=== PATIENT | female | born 1990 | race African-American/Black ===

== ENCOUNTER 2021-08-03 08:04 | Inpatient (IN) | payer BC ==
[2021-08-03] MEDS ORDERED: Sodium Chloride 0.9% 10 ML Syringe FLUSH PRN (08:23)
[2021-08-03] MEDS ORDERED: Nalbuphine 10 MG/1 ML Vial IVPUSH PRN (08:23)
[2021-08-03] MEDS ORDERED: Oxytocin/Lactated Ringers 10 UNIT/1,000 ML BAG IV SCH ×2 (08:30)
[2021-08-03] MEDS: Lactated Ringers 1,000 ML IV SCH ×4 (09:30→19:30)
[2021-08-03] MEDS ORDERED: ePHEDrine 50 MG/ML SDV IVPUSH PRN (09:56)
[2021-08-03] MEDS ORDERED: fentaNYL 100 MCG/2 ML SDV EPIDUR PRN (09:56)
[2021-08-03] MEDS ORDERED: Ondansetron 4 MG/2 ML SDV IVPUSH PRN (09:56)
--- NOTE | 2021-08-03 10:05 | PCM.PREANE ---
Preanesthetic Assessment - Procedure Proposed Procedure: Epidural - Anesthesia/Transfusion/Family Hx Anesthesia History: Prior Anesthesia Without Reaction Family History of Anesthesia Reaction: No Transfusion History: No Prior Transfusion(s) Intubation History: Unknown - Review of Systems General: No Symptoms Pulmonary: No Symptoms (Smoker: 1-2 cigarettes/ 7 years. ETOH: socially but not with ) Cardiovascular: No Symptoms, Palpitations (with anxiety) Gastrointestinal: No Symptoms (GERD-pepcid at night/controlled.), Constipation Neurological: No Symptoms (#2 lower back pain.), Numbness (right hand greater than left CTS.) Other: Reports: None, Anxiety - Physical Assessment NPO Status Date: 08/03/21 NPO Status Time: 07:00 Vital Signs: Last Vital Signs Temp 36.8 C 08/03/21 08:23 Pulse 110 H 08/03/21 08:23 Resp 18 08/03/21 08:23 BP 134/79 08/03/21 08:23 Pulse Ox 100 08/03/21 08:23 Height: 1.63 m Weight: 94.347 kg ASA Class: 3 Mental Status: Alert & Oriented x3 Airway Class: Mallampati = 2 Dentition: Reports: Normal Dentition, Caries Thyro-Mental Finger Breadths: 3 Mouth Opening Finger Breadths: 3 ROM/Head Extension: Full Lungs: Clear to Auscultation, Normal Respiratory Effort Cardiovascular: Regular Rate, Regular Rhythm, No Murmurs - Lab Values: Laboratory Last Values WBC 13.00 K/mm3 (3.98-10.04) H 08/03/21 08:40 RBC 4.17 M/mm3 (3.98-5.22) 08/03/21 08:40 Hgb 12.1 gm/dl (11.2-15.7) 08/03/21 08:40 Hct 36.9 % (34.1-44.9) 08/03/21 08:40 MCV 88.5 fl (79.4-94.8) 08/03/21 08:40 MCH 29.0 pg (25.6-32.2) 08/03/21 08:40 MCHC 32.8 g/dl (32.2-35.5) 08/03/21 08:40 RDW Std Deviation 44.1 fL (36.4-46.3) 08/03/21 08:40 Plt Count 156 K/mm3 (182-369) L 08/03/21 08:40 MPV 11.9 fl (9.4-12.3) 08/03/21 08:40 SARS-CoV-2 RNA (RAMON) Negative (NEGATIVE) 08/03/21 08:45 Above labs reviewed and noted and within acceptable ranges to proceed with epidural if desired. - Allergies Allergies/Adverse Reactions: Allergies Allergy/AdvReac Type Severity Reaction Status Date / Time No Known Allergies Allergy Verified 08/03/21 08:51 - Anesthesia Plan Pre-Op Medication Ordered: None - Acknowledgements Anesthesia Type Planned: Epidural Pt an Appropriate Candidate for the Planned Anesthesia: Yes Alternatives and Risks of Anesthesia Discussed w Pt/Guardian: Yes Pt/Guardian Understands and Agrees with Anesthesia Plan: Yes PreAnesthesia Questionnaire - Past Health History Medical/Surgical History: Denies Medical/Surgical History HEENT History: Reports: None Gastrointestinal History: Reports: GERD, Irritable Bowel Syndrome [employer]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: Psychiatric History: Reports: Anxiety - HOME MEDS Home Medications: Home Meds Acetaminophen/Diphenhydramine [Tylenol Pm Ex-Strength Caplet] 2 each PO BEDTIME PRN 08/03/21 [History] Cyclobenzaprine [Flexeril] 5 mg PO TID PRN 08/03/21 [History] Famotidine [Pepcid] 40 mg PO BEDTIME 08/03/21 [History] Pnv No.95/Ferrous Fum/Folic AC [ Tablet] 1 each PO DAILY 08/03/21 [History] - CURRENT (IN HOUSE) MEDS Current Meds: Current Medications Oxytocin/Lactated Ringer's (Pitocin In Lr 10 Units/1,000 Ml) 10 unit in 1,000 mls @ 12 mls/hr IV TITRATE YOSI; Protocol Last Admin: 08/03/21 09:39 Dose: 2 munits/min, 12 mls/hr Documented by: Oxytocin/Lactated Ringer's (Pitocin In Lr 10 Units/1,000 Ml) 10 unit in 1,000 mls @ 100 mls/hr IV .CONTINUOUS YOSI Lactated Ringer's (Ringers, Lactated) 1,000 mls @ 100 mls/hr IV ASDIRECTED YOSI Last Admin: 08/03/21 09:30 Dose: 100 mls/hr Documented by: Nalbuphine HCl (Nalbuphine 10 Mg/1 Ml Vial) 10 mg IVPUSH Q2H PRN PRN Reason: Pain Sodium Chloride (Sodium Chloride 0.9% 10 Ml Syringe) 10 ml FLUSH ASDIRECTED PRN PRN Reason: Keep Vein Open
--- NOTE | 2021-08-03 12:36 | PCM.LDHP ---
L&D History of Present Illness - General Date of Service: 08/03/21 Admit Problem/Dx: Admission Diagnosis/Problem Admission Diagnosis/Problem - History of Present Illness Introduction:: 31 year old at 39 weeks here with SROM at 5 am. - Related Data Allergies/Adverse Reactions: Allergies Allergy/AdvReac Type Severity Reaction Status Date / Time No Known Allergies Allergy Verified 08/03/21 08:51 Home Medications: Home Meds Acetaminophen/Diphenhydramine [Tylenol Pm Ex-Strength Caplet] 2 each PO BEDTIME PRN 08/03/21 [History] Cyclobenzaprine [Flexeril] 5 mg PO TID PRN 08/03/21 [History] Famotidine [Pepcid] 40 mg PO BEDTIME 08/03/21 [History] Pnv No.95/Ferrous Fum/Folic AC [ Tablet] 1 each PO DAILY 08/03/21 [History] Past Medical History - Past Health History Medical/Surgical History: Denies Medical/Surgical History HEENT History: Reports: None Gastrointestinal History: Reports: GERD, Irritable Bowel 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: Psychiatric History: Reports: Anxiety Social & Family History - Tobacco Use Tobacco Use Status *Q: Current Every Day Tobacco User Years of Tobacco use: 7 Packs/Tins Daily: 0.2 - Caffeine Use Caffeine Use: Reports: Coffee, Energy Drinks, Soda - Recreational Drug Use Recreational Drug Use: No H&P Review of Systems - Review of Systems: Review Of Systems: See Below General: Reports: No Symptoms HEENT: Reports: No Symptoms Pulmonary: Reports: No Symptoms Cardiovascular: Reports: No Symptoms Gastrointestinal: Reports: No Symptoms Genitourinary: Reports: No Symptoms Musculoskeletal: Reports: No Symptoms Skin: Reports: No Symptoms Psychiatric: Reports: No Symptoms Neurological: Reports: No Symptoms Hematologic/Lymphatic: Reports: No Symptoms Immunologic: Reports: No Symptoms L&D Exam - Exam Exam: See Below - Vital Signs Vital Signs: Last Vital Signs Temp 36.8 C 08/03/21 08:23 Pulse 110 H 08/03/21 08:23 Resp 18 08/03/21 08:23 BP 134/79 08/03/21 08:23 Pulse Ox 100 08/03/21 08:23 Weight: 94.347 kg - OB Specific Contraction Intensity: Moderate to Strong Heart Rate (FHR) Variability: Moderate (6-25 bpm) Presentation: Vertex - Becker Score Becker Score Cervix Position: Midposition Becker Score Consistency: Soft Becker Score Dilation: 1-2 cm Becker Score 's Station: -2 - Exam General: Alert, Oriented HEENT: PERRLA, Conjunctiva Clear, EACs Clear, EOMI, Hearing Intact, Mucosa Moist & [place], Nares Patent, Normal Nasal Septum, Posterior Pharynx Clear, TMs Clear Neck: Supple, Trachea Midline Lungs: Clear to Auscultation, Normal Respiratory Effort Cardiovascular: Regular Rate, Regular Rhythm GI/Abdominal Exam: Normal Bowel Sounds, Soft, Non-Tender, No Organomegaly, No Distention, No Abnormal Bruit, No Mass, Pelvis Stable Back Exam: Normal Inspection, Full Range of Motion Extremities: Normal Inspection, Normal Range of Motion, Non-Tender, No Pedal Edema, Normal Capillary Refill Skin: Warm, Dry, Intact Neurological: Cranial Nerves Intact, Reflexes Equal Bilateral Psychiatric: Alert, Normal Affect, Normal Mood - Patient Data Lab Results Last 24 hrs: Laboratory Results - last 24 hr 08/03/21 08/03/21 Range/Units 08:40 08:45 WBC 13.00 H (3.98-10.04) K/mm3 RBC 4.17 (3.98-5.22) M/mm3 Hgb 12.1 (11.2-15.7) gm/dl Hct 36.9 (34.1-44.9) % MCV 88.5 (79.4-94.8) fl MCH 29.0 (25.6-32.2) pg MCHC 32.8 (32.2-35.5) g/dl RDW Std Deviation 44.1 (36.4-46.3) fL Plt Count 156 L (182-369) K/mm3 MPV 11.9 (9.4-12.3) fl SARS-CoV-2 RNA (RAMON) Negative (NEGATIVE) Result Diagrams: 08/03/21 08:40 Problem List Initiated/Reviewed/Updated: Yes Orders Last 24hrs: Active Orders 24 hr Category Date Time Status Activity as Tolerated [RC] PFP Care 08/03/21 08:23 Active Communication Order [RC] ASDIRECTED Care 08/03/21 08:23 Active Heart Tones [RC] ASDIRECTED Care 08/03/21 08:23 Active Non Stress Test [RC] PER UNIT ROUTINE Care 08/03/21 08:23 Active Notify Provider [RC] ASDIRECTED Care 08/03/21 09:56 Active Notify Provider [RC] PFP Care 08/03/21 08:23 Active Notify Provider [RC] PRN Care 08/03/21 08:23 Active Oxygen Therapy [RC] ASDIRECTED Care 08/03/21 09:56 Active Peripheral IV Care [RC] . DIRECTED Care 08/03/21 08:23 Active Pulse Oximetry [RC] ASDIRECTED Care 08/03/21 09:56 Active Vital Signs [RC] PER UNIT ROUTINE Care 08/03/21 08:23 Active Clear Liquid Diet [DIET] Diet 08/03/21 Lunch Active RAPID PLASMA REAGIN,RPR [CHEM] Routine Lab 08/03/21 08:40 Received Bupivacaine/fentaNYL/NS [fentaNYL/Bupivacaine/NS 2 MCG- Med 08/03/21 10:00 Active 0.125% 100 ML] 100 ml EPIDUR ASDIRECTED Lactated Ringers [Ringers, Lactated] 1,000 ml Med 08/03/21 08:30 Active IV ASDIRECTED Nalbuphine [Nubain] Med 08/03/21 08:23 Active 10 mg IVPUSH Q2H PRN Ondansetron [Zofran] Med 08/03/21 09:56 Active 4 mg IVPUSH ONETIME PRN Oxytocin/Lactated Ringers [Pitocin in LR 10 Units/1,000 Med 08/03/21 08:30 Active ML] 10 unit in 1,000 ml IV .CONTINUOUS Oxytocin/Lactated Ringers [Pitocin in LR 10 Units/1,000 Med 08/03/21 08:30 Active ML] 10 unit in 1,000 ml IV TITRATE Phenylephrine HCl In 0.9% NaCl [Phenylephrine 1 MG/10 Med 08/03/21 09:56 Active ML-NS] 0.1 mg IVPUSH Q10M PRN Sodium Chloride 0.9% [Saline Flush] Med 08/03/21 08:23 Active 10 ml FLUSH ASDIRECTED PRN ePHEDrine [ePHEDrine sulfate] Med 08/03/21 09:56 Active 5 mg IVPUSH ASDIRECTED PRN fentaNYL [Sublimaze] Med 08/03/21 09:56 Active 100 mcg EPIDUR Q3H PRN Electronic Heart Tones Ext w TOCO [WOMSER] Oth 08/03/21 08:23 Ordered Routine Electronic Heart Tones Internal [WOMSER] Per Unit Oth 08/03/21 08:23 Ordered Routine Peripheral IV Insertion Adult [OM.PC] Routine Oth 08/03/21 08:23 Ordered Resuscitation Status Routine Resus Stat 08/03/21 08:23 Ordered Medication Orders Ephedrine Sulfate (Ephedrine 50 Mg/Ml Sdv) 5 mg IVPUSH ASDIRECTED PRN PRN Reason: Hypotension Fentanyl (Fentanyl 100 Mcg/2 Ml Sdv) 100 mcg EPIDUR Q3H PRN PRN Reason: Pain Fentanyl/Bupivacaine HCl (Bupivacaine/Fentanyl/Ns 100 Ml Bag) 100 ml EPIDUR ASDIRECTED YOSI Oxytocin/Lactated Ringer's (Pitocin In Lr 10 Units/1,000 Ml) 10 unit in 1,000 mls @ 12 mls/hr IV TITRATE YOSI; Protocol Last Titration: 08/03/21 12:00 Dose: 8 munits/min, 48 mls/hr Documented by: Titration: 08/03/21 11:15 Dose: 6 munits/min, 36 mls/hr Documented by: Titration: 08/03/21 10:49 Dose: 4 munits/min, 24 mls/hr Documented by: Admin: 08/03/21 09:39 Dose: 2 munits/min, 12 mls/hr Documented by: SHARLA Oxytocin/Lactated Ringer's (Pitocin In Lr 10 Units/1,000 Ml) 10 unit in 1,000 mls @ 100 mls/hr IV .CONTINUOUS YOSI Lactated Ringer's (Ringers, Lactated) 1,000 mls @ 100 mls/hr IV ASDIRECTED YOSI Last Admin: 08/03/21 09:30 Dose: 100 mls/hr Documented by: SHARLA Miscellaneous Medication (Phenylephrine Hcl In 0.9% Nacl 1 Mg/10 Ml Syringe) 0.1 mg IVPUSH Q10M PRN PRN Reason: Hypotension Nalbuphine HCl (Nalbuphine 10 Mg/1 Ml Vial) 10 mg IVPUSH Q2H PRN PRN Reason: Pain Ondansetron HCl (Ondansetron 4 Mg/2 Ml Sdv) 4 mg IVPUSH ONETIME PRN PRN Reason: Nausea/Vomiting Sodium Chloride (Sodium Chloride 0.9% 10 Ml Syringe) 10 ml FLUSH ASDIRECTED PRN PRN Reason: Keep Vein Open Assessment/Plan Comment:: Term labor/srom. Doing well. No issues. GBS negative. Labs, IV fluid. Epidural prn. Anticipate .
[2021-08-03] MEDS: Bupivacaine/fentaNYL/NS 100 ML Bag EPIDUR SCH ×2 (13:44→22:21)
[2021-08-03] MEDS ORDERED: diphenhydrAMINE 50 MG/ML SDV IVPUSH ONE (16:57)
[2021-08-03] MEDS ORDERED: Sodium Chloride 0.9% 1,000 ML IRR SCH (23:00)
[2021-08-03] MEDS ORDERED: Sodium Chloride 0.9% 1,000 ML IV ONE (23:05)
[2021-08-03] MEDS ORDERED: Sodium Chloride 0.9% 1,000 ML ONE (23:08)
[2021-08-03] MEDS ORDERED: Calcium Carbonate 500 MG Tab.Chew PO PRN (23:25)
[2021-08-03] MEDS ORDERED: Azithromycin 500 MG in Sodium Chloride 0.9% 250 ML IV ONE (23:49)
[2021-08-03] MEDS ORDERED: Metoclopramide 10 MG/2 ML SDV IVPUSH ONE (23:51)
[2021-08-03] MEDS ORDERED: Citric Acid/Sodium Citrate Solution 30 ML Cup PO ONE (23:51)
[2021-08-04] MEDS ORDERED: Metoclopramide 10 MG/2 ML SDV ONE
[2021-08-04] MEDS ORDERED: Bupivacaine 0.25% 10 ML SDV ONE ×2
[2021-08-04] MEDS ORDERED: Citric Acid/Sodium Citrate Solution 30 ML Cup ONE
[2021-08-04] MEDS ORDERED: ceFAZolin 2 GM in Premix Bag 1 BAG IV ONE (00:15)
--- NOTE | 2021-08-04 00:22 | PCM.SN.2 ---
- Free Text/Narrative Note: Occasional late decelerations around 6 pm. Resolved quickly with repositioning. Then over remainder of evening occasional deep variable decelerations. Minimal cervical change and with pitocin increased more decelerations. Decision in conversation with patient to proceed with section. RBA discussed and patient voices understanding and wishes to proceed. Time Documentation
[2021-08-04] MEDS ORDERED: Bupivacaine 0.5% 30 ML SDV ONE (00:35)
[2021-08-04] MEDS ORDERED: ceFAZolin 1 GM Vial ONE (00:51)
[2021-08-04] MEDS ORDERED: Lactated Ringers 2,000 ML ONE (00:51)
[2021-08-04] MEDS ORDERED: Ondansetron 4 MG/2 ML SDV ONE (00:51)
[2021-08-04] MEDS ORDERED: Oxytocin 10 Units/1 ML SDV ONE (00:51)
[2021-08-04] MEDS ORDERED: Lidocaine 2% with EPINEPHrine 1:200,000 20 ML SDV ONE (00:51)
[2021-08-04] MEDS ORDERED: Ketorolac 30 MG/ML SDV ONE (00:51)
[2021-08-04] MEDS ORDERED: Morphine PF 10 MG/10 ML SDV ONE (00:52)
[2021-08-04] MEDS ORDERED: fentaNYL 100 MCG/2 ML SDV ONE (00:52)
[2021-08-04] MEDS ORDERED: diphenhydrAMINE 50 MG/ML SDV IVPUSH PRN ×2 (01:17→02:26)
[2021-08-04] MEDS ORDERED: fentaNYL 100 MCG/2 ML SDV IVPUSH PRN (01:17)
[2021-08-04] MEDS ORDERED: HYDROmorphone 0.5 MG/0.5 ML Syringe IVPUSH PRN (01:17)
[2021-08-04] MEDS ORDERED: ePHEDrine 50 MG/ML SDV IVPUSH PRN ×2 (01:17→02:26)
[2021-08-04] MEDS ORDERED: Ondansetron 4 MG/2 ML SDV IVPUSH PRN (01:17)
--- NOTE | 2021-08-04 01:58 | PCM.POSTAN ---
POST ANESTHESIA ASSESSMENT - MENTAL STATUS Mental Status: Alert - VITAL SIGNS Vital Signs: Last Vital Signs Temp 98.4 08/04/21140 Pulse 72 08/04/21140 Resp 12 08/04/21140 BP 116/62 08/04/21140 Pulse Ox 95% 08/04/21140 - RESPIRATORY Respiratory Status: Respiratory Rate WNL, Airway Patent, O2 Saturation Stable, Supplemental Oxygen - CARDIOVASCULAR CV Status: Pulse Rate WNL, Blood Pressure Stable - GASTROINTESTINAL GI Status: No Symptoms - POST OP HYDRATION Hydration Status: Adequate & Stable
--- NOTE | 2021-08-04 02:10 | PCM.OPNOTE ---
- General Post-Op/Procedure Note Date of Surgery/Procedure: 08/04/21 Operative Procedure(s): primary section Findings: Viable male, weight 6#2oz, 07/04 at 2790g. Normal uterus tubes and ovaries. Pre Op Diagnosis: non reassuring heart tones Post-Op Diagnosis: Same Primary Surgeon: Vivi Monteiro Anesthesia Provider: Radha Newton Accountant Clerk: Candelario Arevalo Fluid Replacement, Intraop: 800 Output, Urine Amount: 400 EBL in mLs: 1,000 Complications: none Condition: Good Free Text/Narrative:: Intake & Output 08/03/21 08/03/21 08/04/21 14:59 22:59 06:59 Intake Total 320 Balance 320 The patient was taken to the operating room where epidural anesthesia was dosed to surgical levels without difficulty. The patient was prepped and draped in the usual sterile fashion in the dorsal supine position with a leftward tilt. A Pfannenstiel skin incision was made with the scalpel and carried through to the underlying layer of fascia. The fascia was incised in the midline and extended l aterally using Quintana scissors. Mini clamps were used to elevate the superior aspect of the fascial incision, which was elevated, and the underlying rectus muscles were dissected off bluntly and using Quintana scissors. Attention was then turned to the inferior aspect of the fascial incision, which in similar fashion was grasped with Mini clamps, elevated, and the underlying rectus muscles were dissected off bluntly and using the quintana. The rectus muscles were dissected in the midline. The peritoneum was entered bluntly; this incision was extended superiorly and inferiorly with good visualization of the bladder. The bladder blade was inserted. The vesicouterine peritoneum was identified and entered sharply using Metzenbaum scissors. This incision was extended laterally and the bladder flap w as created digitally. The bladder blade was reinserted. The lower uterine segment was incised in a transverse fashion using the scalpel and with digital traction. Clear fluid was noted. The was subsequently delivered by flexing the head to the incision. Body and shoulders followed without difficulty. The cord was clamped and cut. The was subsequently handed to the awaiting loan and credit manager whose presence had been requested.. The placenta was delivered spontaneously intact with a three-vessel cord noted. The uterus was exteriorized and cleared of all clots and debris. The uterine incision was repaired in 2 layers using 0 monocryl. Hemostasis was visualized. Hemostasis was visualized bilaterally. The uterus was returned to the abdomen. The uterine incision was reexamined and it was noted to be hemostatic. The pelvis was copiously irrigated. The fascia was closed with 1 PDS suture, and the skin was closed with 3-0 monocryl. Sponge, lap, and instrument counts were correct x2. The patient was stable at the completion of the procedure and was subsequently transferred to the recovery room in stable condition.
[2021-08-04] MEDS ORDERED: Docusate Sodium 100 MG Cap PO PRN (02:26)
[2021-08-04] MEDS ORDERED: Acetaminophen/oxyCODONE 325-5 MG Tab PO PRN (02:26)
[2021-08-04] MEDS ORDERED: Naloxone 0.4 MG/ML SDV IVPUSH PRN (02:26)
[2021-08-04] MEDS ORDERED: Ibuprofen 600 MG Tab PO PRN ×2 (02:26→20:00)
[2021-08-04] MEDS ORDERED: Dextrose 5%-Lactated Ringers 1,000 ML IV SCH (02:30)
[2021-08-04] MEDS: Ketorolac 30 MG/ML SDV IVPUSH SCH ×3 (02:41→14:34)
[2021-08-04] MEDS: Acetaminophen/oxyCODONE 325-5 MG Tab PO PRN ×3 (06:16→22:28)
--- NOTE | 2021-08-04 08:10 | US ---
Pelvic ultrasound: Multiple real-time images were obtained transabdominally. Comparison: No prior pelvic imaging is available. Uterus is anteverted. Uterus is mildly generous in size compatible with recent . Endometrial thickness is 1.5 cm. There is a mild heterogeneous area within the endometrial cavity compatible with small blood clot. Right and left ovaries are not optimally seen but show no discrete abnormality. There is no free fluid being seen within the quadrants of the abdomen or pelvis. Measurements: Right ovary: 3.7 x 1.6 x 2.0 cm Left ovary: 3.9 x 2.8 x 2.5 cm Uterus: Length 18.7 cm, AP height 9.0 cm, transverse width 12.4 cm Other findings: Scattered shadowing within the abdomen is seen which is compatible with air-filled bowel. Impression: 1. Small amount of blood clot within the endometrial cavity. 2. Mild scattered air-filled bowel. 3. Pelvic ultrasound is otherwise unremarkable. Diagnostic code #2
--- NOTE | 2021-08-04 09:52 | PCM48HPAN ---
Post Anesthesia Note - EVALUATION WITHIN 48HRS OF ANESTHETIC Vital Signs in Normal Range: Yes Patient Participated in Evaluation: Yes Respiratory Function Stable: Yes Airway Patent: Yes Cardiovascular Function Stable: Yes Hydration Status Stable: Yes Pain Control Satisfactory: Yes Nausea and Vomiting Control Satisfactory: Yes Mental Status Recovered: Yes Vital Signs: Last Vital Signs Temp 36.6 C 08/04/21 08:19 Pulse 110 H 08/03/21 08:23 Resp 16 08/04/21 08:19 BP 103/55 L 08/04/21 08:19 Pulse Ox 99 08/04/21 08:19
[2021-08-04] MEDS ORDERED: ceFAZolin 2 GM in Sodium Chloride 0.9% 100 ML IV ONE (23:49)
[2021-08-05] MEDS: Acetaminophen/oxyCODONE 325-5 MG Tab PO PRN ×4 (04:39→20:36)
--- NOTE | 2021-08-05 06:44 | PCM.PNPP ---
- General Info Date of Service: 08/05/21 Functional Status: Reports: Pain Controlled, Tolerating Diet, Ambulating, Urinating - Review of Systems General: Reports: No Symptoms Pulmonary: Reports: No Symptoms Cardiovascular: Reports: No Symptoms Gastrointestinal: Reports: Abdominal Pain Musculoskeletal: Reports: No Symptoms Neurological: Reports: No Symptoms - Patient Data Vital Signs - Most Recent: Last Vital Signs Temp 36.9 C 08/04/21 19:59 Pulse 94 08/04/21 19:59 Resp 18 08/04/21 19:59 BP 128/76 08/04/21 19:59 Pulse Ox 97 08/04/21 19:59 Weight - Most Recent: 94.347 kg I&O - Last 24 Hours: Intake & Output 08/04/21 08/04/21 08/05/21 14:59 22:59 06:59 Intake Total 960 1000 Output Total 625 1009 Balance 335 -9 Lab Results - Last 24 Hours: Laboratory Results - last 24 hr 08/04/21 Range/Units 06:20 Manual Slide Review Abnormal smear Med Orders - Current: Current Medications Diphenhydramine HCl (Diphenhydramine 50 Mg/Ml Sdv) 25 mg IVPUSH Q6H PRN PRN Reason: Itching or Nausea Last Admin: 08/04/21 03:47 Dose: 25 mg Documented by: Docusate Sodium (Docusate Sodium 100 Mg Cap) 100 mg PO Q12H PRN PRN Reason: Constipation Ephedrine Sulfate (Ephedrine 50 Mg/Ml Sdv) 5 mg IVPUSH SEECOMMENT PRN PRN Reason: Other Ibuprofen (Ibuprofen 600 Mg Tab) 600 mg PO Q6H PRN PRN Reason: mild pain or fever Naloxone HCl (Naloxone 0.4 Mg/Ml Sdv) 0.1 mg IVPUSH SEECOMMENT PRN PRN Reason: Respiratory Depression Oxycodone/Acetaminophen (Acetaminophen/Oxycodone 325-5 Mg Tab) 1 tab PO Q4H PRN PRN Reason: Pain (moderate 4-6) Oxycodone/Acetaminophen (Acetaminophen/Oxycodone 325-5 Mg Tab) 2 tab PO Q4H PRN PRN Reason: Pain (severe 7-10) Last Admin: 08/05/21 04:39 Dose: 2 tab Documented by: Discontinued Medications Bupivacaine HCl (Bupivacaine 0.5% 30 Ml Sdv) Confirm Administered Dose 30 ml .ROUTE .STK-MED ONE Stop: 08/04/21 00:36 Last Admin: 08/04/21 00:58 Dose: 20 ml Documented by: Bupivacaine HCl (Bupivacaine 0.25% 10 Ml Sdv) 10 ml .ROUTE .STK-MED ONE Stop: 08/04/21 00:01 Bupivacaine HCl (Bupivacaine 0.25% 10 Ml Sdv) 10 ml .ROUTE .STK-MED ONE Stop: 08/04/21 00:01 Calcium Carbonate/Glycine (Calcium Carbonate 500 Mg Tab.Chew) 1,000 mg PO Q2HR PRN PRN Reason: Indigestion Cefazolin Sodium (Cefazolin 1 Gm Vial) Confirm Administered Dose 2 gm .ROUTE .STK-MED ONE Stop: 08/04/21 00:52 Citric Acid/Sodium Citrate (Citric Acid/Sodium Citrate Solution 30 Ml Cup) 30 ml PO ONETIME ONE Stop: 08/03/21 23:52 Last Admin: 08/04/21 00:16 Dose: 30 ml Documented by: Citric Acid/Sodium Citrate (Citric Acid/Sodium Citrate Solution 30 Ml Cup) Confirm Administered Dose 30 ml .ROUTE .STK-MED ONE Stop: 08/04/21 00:01 Last Admin: 08/04/21 04:28 Dose: Not Given Documented by: Diphenhydramine HCl (Diphenhydramine 50 Mg/Ml Sdv) 25 mg IVPUSH ONETIME ONE Stop: 08/03/21 16:58 Last Admin: 08/03/21 17:08 Dose: 25 mg Documented by: Diphenhydramine HCl (Diphenhydramine 50 Mg/Ml Sdv) 25 mg IVPUSH Q6H PRN PRN Reason: pruritis Ephedrine Sulfate (Ephedrine 50 Mg/Ml Sdv) 5 mg IVPUSH ASDIRECTED PRN PRN Reason: Hypotension Ephedrine Sulfate (Ephedrine 50 Mg/Ml Sdv) 5 mg IVPUSH ASDIRECTED PRN PRN Reason: Hypotension Fentanyl (Fentanyl 100 Mcg/2 Ml Sdv) 100 mcg EPIDUR Q3H PRN PRN Reason: Pain Last Admin: 08/03/21 13:38 Dose: 100 mcg Documented by: Fentanyl (Fentanyl 100 Mcg/2 Ml Sdv) Confirm Administered Dose 100 mcg .ROUTE .STK-MED ONE Stop: 08/04/21 00:53 Fentanyl (Fentanyl 100 Mcg/2 Ml Sdv) 50 mcg IVPUSH Q20M PRN PRN Reason: Pain Fentanyl/Bupivacaine HCl (Bupivacaine/Fentanyl/Ns 100 Ml Bag) 100 ml EPIDUR ASDIRECTED [facility] Last Admin: 08/03/21 22:21 Dose: 100 ml Documented by: Hydromorphone HCl (Hydromorphone 0.5 Mg/0.5 Ml Syringe) 0.5 mg IVPUSH Q10M PRN PRN Reason: Pain (severe 7-10) Oxytocin/Lactated Ringer's (Pitocin In Lr 10 Units/1,000 Ml) 10 unit in 1,000 mls @ 12 mls/hr IV TITRATE YOSI; Protocol Last Titration: 08/03/21 19:57 Dose: 0 munits/min, 0 mls/hr Documented by: Oxytocin/Lactated Ringer's (Pitocin In Lr 10 Units/1,000 Ml) 10 unit in 1,000 mls @ 100 mls/hr IV .CONTINUOUS YOSI Lactated Ringer's (Ringers, Lactated) 1,000 mls @ 100 mls/hr IV ASDIRECTED [facility] Last Admin: 08/03/21 19:30 Dose: 100 mls/hr Documented by: Sodium Chloride (Normal Saline) 1,000 mls @ 300 mls/hr IV ONETIME ONE Stop: 08/04/21 02:24 Last Admin: 08/03/21 23:18 Dose: 300 mls/hr Documented by: Sodium Chloride (Normal Saline) Confirm Administered Dose 1,000 mls @ as directed .ROUTE .STK-MED ONE Stop: 08/03/21 23:09 Last Admin: 08/04/21 04:28 Dose: Not Given Documented by: Cefazolin Sodium 2 gm/ Sodium (Chloride) 100 mls @ 100 mls/hr IV ONETIME ONE Stop: 08/05/21 00:48 Azithromycin 500 mg/ Sodium (Chloride) 250 mls @ 250 mls/hr IV ONETIME ONE Stop: 08/04/21 00:48 Last Admin: 08/04/21 00:15 Dose: 250 mls/hr Documented by: Cefazolin Sodium/Dextrose 2 gm (/ Premix) 50 mls @ 100 mls/hr IV ONETIME ONE Stop: 08/04/21 00:44 Lactated Ringer's (Ringers, Lactated) Confirm Administered Dose 2,000 mls @ as directed .ROUTE .STK-MED ONE Stop: 08/04/21 00:52 Dextrose/Lactated Ringer's (Dextrose 5%-Lactated Ringers) 1,000 mls @ 125 mls/hr IV ASDIRECTED [facility] Stop: 08/04/21 10:29 Last Admin: 08/04/21 07:45 Dose: 125 mls/hr Documented by: Ibuprofen (Ibuprofen 600 Mg Tab) 600 mg PO Q6H PRN PRN Reason: mild pain or fever Ketorolac Tromethamine (Ketorolac 30 Mg/Ml Sdv) Confirm Administered Dose 30 mg .ROUTE .STK-MED ONE Stop: 08/04/21 00:52 Ketorolac Tromethamine (Ketorolac 30 Mg/Ml Sdv) 30 mg IVPUSH Q6H [facility] Stop: 08/04/21 14:31 Last Admin: 08/04/21 14:34 Dose: 30 mg Documented by: Lidocaine/Epinephrine (Lidocaine 2% With Epinephrine 1:200,000 20 Ml Sdv) Confirm Administered Dose 20 ml .ROUTE .STK-MED ONE Stop: 08/04/21 00:52 Metoclopramide HCl (Metoclopramide 10 Mg/2 Ml Sdv) 10 mg IVPUSH ONETIME ONE Stop: 08/03/21 23:52 Last Admin: 08/04/21 04:28 Dose: Not Given Documented by: Metoclopramide HCl (Metoclopramide 10 Mg/2 Ml Sdv) Confirm Administered Dose 10 mg .ROUTE .STK-MED ONE Stop: 08/04/21 00:01 Last Admin: 08/04/21 04:28 Dose: Not Given Documented by: Miscellaneous Medication (Phenylephrine Hcl In 0.9% Nacl 1 Mg/10 Ml Syringe) 0.1 mg IVPUSH Q10M PRN PRN Reason: Hypotension Miscellaneous Medication (Phenylephrine Hcl In 0.9% Nacl 1 Mg/10 Ml Syringe) Confirm Administered Dose 1 mg .ROUTE .STK-MED ONE Stop: 08/04/21 00:52 Miscellaneous Medication (Phenylephrine Hcl In 0.9% Nacl 1 Mg/10 Ml Syringe) 0.1 mg IVPUSH Q10M PRN PRN Reason: Hypotension Morphine Sulfate (Morphine Pf 10 Mg/10 Ml Sdv) Confirm Administered Dose 10 mg .ROUTE .STK-MED ONE Stop: 08/04/21 00:53 Nalbuphine HCl (Nalbuphine 10 Mg/1 Ml Vial) 10 mg IVPUSH Q2H PRN PRN Reason: Pain Ondansetron HCl (Ondansetron 4 Mg/2 Ml Sdv) 4 mg IVPUSH ONETIME PRN PRN Reason: Nausea/Vomiting Last Admin: 08/04/21 00:31 Dose: 4 mg Documented by: Ondansetron HCl (Ondansetron 4 Mg/2 Ml Sdv) Confirm Administered Dose 4 mg .ROUTE .STK-MED ONE Stop: 08/04/21 00:52 Ondansetron HCl (Ondansetron 4 Mg/2 Ml Sdv) 4 mg IVPUSH ONETIME PRN PRN Reason: Nausea/Vomiting Oxytocin (Oxytocin 10 Units/1 Ml Sdv) Confirm Administered Dose 20 unit .ROUTE .STK-MED ONE Stop: 08/04/21 00:52 Sodium Chloride (Sodium Chloride 0.9% 10 Ml Syringe) 10 ml FLUSH ASDIRECTED PRN PRN Reason: Keep Vein Open - Interaction Disposition, : in Room with Family Infant Interaction: Holding Infant Infant Feeding: Attempted ; Nursed Fair/Poor Support Person: Significant Other - Recovery Exam Fundal Tone: Firm Fundal Placement: Midline Lochia Amount: Scant, Small Lochia Color: Rubra/Red Perineum Description: Intact, Minimal Bruising/Swelling Episiotomy/Laceration: None Bladder Status: Voiding Urinary Elimination: Voided - Exam General: Alert, Oriented, Cooperative Lungs: Clear to Auscultation, Normal Respiratory Effort Cardiovascular: Regular Rate, Regular Rhythm GI/Abdominal Exam: Soft, Distended Extremities: Normal Inspection Skin: Warm, Dry, Intact Wound/Incisions: Healing Well, No Drainage - Problem List & Annotations (1) 39 weeks gestation of SNOMED Code(s): 32444039 Code(s): Z3A.39 - 39 WEEKS GESTATION OF Status: Acute Current Visit: Yes (2) SROM (spontaneous rupture of membranes) SNOMED Code(s): 724122111 Code(s): QOZ1150 - Status: Acute Current Visit: Yes (3) intolerance to labor, delivered, current hospitalization SNOMED Code(s): 046000414, 865687262 Code(s): O77.9 - LABOR AND DELIVERY COMPLICATED BY STRESS, UNSPECIFIED Status: Acute Current Visit: Yes (4) S/P primary low transverse SNOMED Code(s): 756911035, 38962681, 311506878, 522759589, 902396464 Code(s): Z98.891 - HISTORY OF UTERINE SCAR FROM PREVIOUS SURGERY Status: Acute Current Visit: Yes - Problem List Review Problem List Initiated/Reviewed/Updated: Yes - Assessment Assessment:: POD#1 - Plan Plan:: Routine cares Add in Colace and Simethicone for distension noted on exam today Breast feeding Discharge home in 1-2 days
[2021-08-05] MEDS: Docusate Sodium 100 MG Cap PO SCH ×2 (08:35→20:36)
[2021-08-05] MEDS: Simethicone 80 MG Tab.Chew PO PRN ×2 (08:42→14:44)
[2021-08-05] MEDS: Magnesium Hydroxide 400 MG/5 ML Susp 30 ML Cup PO PRN (20:36)
[2021-08-06] MEDS: Simethicone 80 MG Tab.Chew PO PRN ×2 (03:08→08:55)
--- NOTE | 2021-08-06 06:34 | PCM.DCSUM1 ---
Discharge Summary - Discharge Data Discharge Date: 08/06/21 Discharge Disposition: Home, Self-Care 01 Condition: Good - Referral to Home Health Primary Care Physician: Vivi Monteiro MD - Discharge Diagnosis/Problem(s) (1) 39 weeks gestation of SNOMED Code(s): 34653060 ICD Code: Z3A.39 - 39 WEEKS GESTATION OF Status: Acute (2) SROM (spontaneous rupture of membranes) SNOMED Code(s): 730970461 ICD Code: [id number] - Status: Acute (3) intolerance to labor, delivered, current hospitalization SNOMED Code(s): 590116985, 434062452 ICD Code: O77.9 - LABOR AND DELIVERY COMPLICATED BY STRESS, UNSPECIFIED Status: Acute (4) S/P primary low transverse SNOMED Code(s): 225127594, 98931341, 014435127, 035111302, 104042100 ICD Code: Z98.891 - HISTORY OF UTERINE SCAR FROM PREVIOUS SURGERY Status: Acute - Patient Summary/Data Operative Procedure(s) Performed: primary section Complications: None Consults: None Recommended Follow-up Testing/Procedures: Follow up in 2 weeks Hospital Course: 31 y/o at 39 1/7 wks who presented with SROM. During labor process there was concerns for compromise as evidenced by recurrent decelerations. For this reason was taken for PLTCS. Surgery uncomplicated. See operative note for full details. did well and was discharged home on POD#2 - Patient Instructions Diet: Regular Diet as Tolerated Activity: No Lifting Over 10 Pounds, Partial Weight Bearing (Pelvic rest for 6 weeks ) Driving: Do Not Drive (while taking percocet ) Showering/Bathing: May Shower, No Tub Bathing/Swimming Wound/Incision Care: Keep Operative Site/Wound Site Clean and Dry Notify Provider of: Fever, Increased Pain, Swelling and Redness, Drainage, Nausea and/or Vomiting - Discharge Plan *PRESCRIPTION DRUG MONITORING PROGRAM REVIEWED*: Yes *COPY OF PRESCRIPTION DRUG MONITORING REPORT IN PATIENT GONSALO: No Prescriptions/Med Rec: Acetaminophen/oxyCODONE [Percocet 325-5 MG] 1 - 2 tab PO Q4H PRN #25 tablet PRN Reason: Pain (Severe 7-10) Home Medications: Home Meds Pnv No.95/Ferrous Fum/Folic AC [ Tablet] 1 each PO DAILY 08/03/21 [History] Acetaminophen/oxyCODONE [Percocet 325-5 MG] 1 - 2 tab PO Q4H PRN #25 tablet 08/05/21 [Rx] Docusate Sodium [Colace] 100 mg PO Q12H cap 08/05/21 [Rx] Ibuprofen [Motrin] 600 mg PO Q6H PRN tablet 08/05/21 [Rx] Simethicone 80 mg PO Q6H PRN tab.chew 08/05/21 [Rx] Patient Handouts: and Breast Care, [id number], Care After Delivery, Steps to Quit Smoking Referrals: Glenny Mcnally MD [Physician] - (2 weeks for check ) - Discharge Summary/Plan Comment DC Time >30 min.: No Total # of Minutes for Discharge Time: 15 - Patient Data Vitals - Most Recent: Last Vital Signs Temp 36.5 C 08/06/21 02:36 Pulse 91 08/06/21 02:36 Resp 12 08/06/21 02:36 BP 120/75 08/06/21 02:36 Pulse Ox 96 08/06/21 02:36 Weight - Most Recent: 94.347 kg I&O - Last 24 hours: Intake & Output 08/05/21 08/05/21 08/06/21 14:59 22:59 06:59 Intake Total 480 Output Total 500 Balance -500 480
--- NOTE | 2021-08-06 06:34 | PCM.PNPP ---
- General Info Date of Service: 08/06/21 Functional Status: Reports: Pain Controlled, Tolerating Diet, Ambulating, Urinating - Review of Systems General: Reports: No Symptoms Pulmonary: Reports: No Symptoms Cardiovascular: Reports: No Symptoms Gastrointestinal: Reports: Abdominal Pain (improved ), Flatus Genitourinary: Reports: No Symptoms Musculoskeletal: Reports: No Symptoms Neurological: Reports: No Symptoms - Patient Data Vital Signs - Most Recent: Last Vital Signs Temp 36.5 C 08/06/21 02:36 Pulse 91 08/06/21 02:36 Resp 12 08/06/21 02:36 BP 120/75 08/06/21 02:36 Pulse Ox 96 08/06/21 02:36 Weight - Most Recent: 94.347 kg I&O - Last 24 Hours: Intake & Output 08/05/21 08/05/21 08/06/21 14:59 22:59 06:59 Intake Total 480 Output Total 500 Balance -500 480 Med Orders - Current: Current Medications Diphenhydramine HCl (Diphenhydramine 50 Mg/Ml Sdv) 25 mg IVPUSH Q6H PRN PRN Reason: Itching or Nausea Last Admin: 08/04/21 03:47 Dose: 25 mg Documented by: Docusate Sodium (Docusate Sodium 100 Mg Cap) 100 mg PO Q12H [facility] Last Admin: 08/05/21 20:36 Dose: 100 mg Documented by: Ephedrine Sulfate (Ephedrine 50 Mg/Ml Sdv) 5 mg IVPUSH SEECOMMENT PRN PRN Reason: Other Ibuprofen (Ibuprofen 600 Mg Tab) 600 mg PO Q6H PRN PRN Reason: mild pain or fever Last Admin: 08/06/21 03:07 Dose: 600 mg Documented by: Magnesium Hydroxide (Magnesium Hydroxide 400 Mg/5 Ml Susp 30 Ml Cup) 30 ml PO DAILY PRN PRN Reason: Constipation Last Admin: 08/05/21 20:36 Dose: 30 ml Documented by: Naloxone HCl (Naloxone 0.4 Mg/Ml Sdv) 0.1 mg IVPUSH SEECOMMENT PRN PRN Reason: Respiratory Depression Oxycodone/Acetaminophen (Acetaminophen/Oxycodone 325-5 Mg Tab) 1 tab PO Q4H PRN PRN Reason: Pain (moderate 4-6) Last Admin: 08/06/21 03:07 Dose: 1 tab Documented by: Oxycodone/Acetaminophen (Acetaminophen/Oxycodone 325-5 Mg Tab) 2 tab PO Q4H PRN PRN Reason: Pain (severe 7-10) Last Admin: 08/05/21 20:36 Dose: 2 tab Documented by: Simethicone (Simethicone 80 Mg Tab.Chew) 80 mg PO Q6H PRN PRN Reason: Gas Last Admin: 08/06/21 03:08 Dose: 80 mg Documented by: Discontinued Medications Bupivacaine HCl (Bupivacaine 0.5% 30 Ml Sdv) Confirm Administered Dose 30 ml .ROUTE .STK-MED ONE Stop: 08/04/21 00:36 Last Admin: 08/04/21 00:58 Dose: 20 ml Documented by: Bupivacaine HCl (Bupivacaine 0.25% 10 Ml Sdv) 10 ml .ROUTE .STK-MED ONE Stop: 08/04/21 00:01 Bupivacaine HCl (Bupivacaine 0.25% 10 Ml Sdv) 10 ml .ROUTE .STK-MED ONE Stop: 08/04/21 00:01 Calcium Carbonate/Glycine (Calcium Carbonate 500 Mg Tab.Chew) 1,000 mg PO Q2HR PRN PRN Reason: Indigestion Cefazolin Sodium (Cefazolin 1 Gm Vial) Confirm Administered Dose 2 gm .ROUTE .STK-MED ONE Stop: 08/04/21 00:52 Citric Acid/Sodium Citrate (Citric Acid/Sodium Citrate Solution 30 Ml Cup) 30 ml PO ONETIME ONE Stop: 08/03/21 23:52 Last Admin: 08/04/21 00:16 Dose: 30 ml Documented by: Citric Acid/Sodium Citrate (Citric Acid/Sodium Citrate Solution 30 Ml Cup) Confirm Administered Dose 30 ml .ROUTE .STK-MED ONE Stop: 08/04/21 00:01 Last Admin: 08/04/21 04:28 Dose: Not Given Documented by: Diphenhydramine HCl (Diphenhydramine 50 Mg/Ml Sdv) 25 mg IVPUSH ONETIME ONE Stop: 08/03/21 16:58 Last Admin: 08/03/21 17:08 Dose: 25 mg Documented by: Diphenhydramine HCl (Diphenhydramine 50 Mg/Ml Sdv) 25 mg IVPUSH Q6H PRN PRN Reason: pruritis Docusate Sodium (Docusate Sodium 100 Mg Cap) 100 mg PO Q12H PRN PRN Reason: Constipation Ephedrine Sulfate (Ephedrine 50 Mg/Ml Sdv) 5 mg IVPUSH ASDIRECTED PRN PRN Reason: Hypotension Ephedrine Sulfate (Ephedrine 50 Mg/Ml Sdv) 5 mg IVPUSH ASDIRECTED PRN PRN Reason: Hypotension Fentanyl (Fentanyl 100 Mcg/2 Ml Sdv) 100 mcg EPIDUR Q3H PRN PRN Reason: Pain Last Admin: 08/03/21 13:38 Dose: 100 mcg Documented by: Fentanyl (Fentanyl 100 Mcg/2 Ml Sdv) Confirm Administered Dose 100 mcg .ROUTE .STK-MED ONE Stop: 08/04/21 00:53 Fentanyl (Fentanyl 100 Mcg/2 Ml Sdv) 50 mcg IVPUSH Q20M PRN PRN Reason: Pain Fentanyl/Bupivacaine HCl (Bupivacaine/Fentanyl/Ns 100 Ml Bag) 100 ml EPIDUR ASDIRECTED [facility] Last Admin: 08/03/21 22:21 Dose: 100 ml Documented by: Hydromorphone HCl (Hydromorphone 0.5 Mg/0.5 Ml Syringe) 0.5 mg IVPUSH Q10M PRN PRN Reason: Pain (severe 7-10) Oxytocin/Lactated Ringer's (Pitocin In Lr 10 Units/1,000 Ml) 10 unit in 1,000 mls @ 12 mls/hr IV TITRATE YOSI; Protocol Last Titration: 08/03/21 19:57 Dose: 0 munits/min, 0 mls/hr Documented by: Oxytocin/Lactated Ringer's (Pitocin In Lr 10 Units/1,000 Ml) 10 unit in 1,000 mls @ 100 mls/hr IV .CONTINUOUS YOSI Lactated Ringer's (Ringers, Lactated) 1,000 mls @ 100 mls/hr IV ASDIRECTED [facility] Last Admin: 08/03/21 19:30 Dose: 100 mls/hr Documented by: Sodium Chloride (Normal Saline) 1,000 mls @ 300 mls/hr IV ONETIME ONE Stop: 08/04/21 02:24 Last Admin: 08/03/21 23:18 Dose: 300 mls/hr Documented by: Sodium Chloride (Normal Saline) Confirm Administered Dose 1,000 mls @ as directed .ROUTE .STK-MED ONE Stop: 08/03/21 23:09 Last Admin: 08/04/21 04:28 Dose: Not Given Documented by: Cefazolin Sodium 2 gm/ Sodium (Chloride) 100 mls @ 100 mls/hr IV ONETIME ONE Stop: 08/05/21 00:48 Azithromycin 500 mg/ Sodium (Chloride) 250 mls @ 250 mls/hr IV ONETIME ONE Stop: 08/04/21 00:48 Last Admin: 08/04/21 00:15 Dose: 250 mls/hr Documented by: Cefazolin Sodium/Dextrose 2 gm (/ Premix) 50 mls @ 100 mls/hr IV ONETIME ONE Stop: 08/04/21 00:44 Lactated Ringer's (Ringers, Lactated) Confirm Administered Dose 2,000 mls @ as directed .ROUTE .STK-MED ONE Stop: 08/04/21 00:52 Dextrose/Lactated Ringer's (Dextrose 5%-Lactated Ringers) 1,000 mls @ 125 mls/hr IV ASDIRECTED [facility] Stop: 08/04/21 10:29 Last Admin: 08/04/21 07:45 Dose: 125 mls/hr Documented by: Ibuprofen (Ibuprofen 600 Mg Tab) 600 mg PO Q6H PRN PRN Reason: mild pain or fever Ketorolac Tromethamine (Ketorolac 30 Mg/Ml Sdv) Confirm Administered Dose 30 mg .ROUTE .STK-MED ONE Stop: 08/04/21 00:52 Ketorolac Tromethamine (Ketorolac 30 Mg/Ml Sdv) 30 mg IVPUSH Q6H [facility] Stop: 08/04/21 14:31 Last Admin: 08/04/21 14:34 Dose: 30 mg Documented by: Lidocaine/Epinephrine (Lidocaine 2% With Epinephrine 1:200,000 20 Ml Sdv) Confirm Administered Dose 20 ml .ROUTE .STK-MED ONE Stop: 08/04/21 00:52 Metoclopramide HCl (Metoclopramide 10 Mg/2 Ml Sdv) 10 mg IVPUSH ONETIME ONE Stop: 08/03/21 23:52 Last Admin: 08/04/21 04:28 Dose: Not Given Documented by: Metoclopramide HCl (Metoclopramide 10 Mg/2 Ml Sdv) Confirm Administered Dose 10 mg .ROUTE .STK-MED ONE Stop: 08/04/21 00:01 Last Admin: 08/04/21 04:28 Dose: Not Given Documented by: Miscellaneous Medication (Phenylephrine Hcl In 0.9% Nacl 1 Mg/10 Ml Syringe) 0.1 mg IVPUSH Q10M PRN PRN Reason: Hypotension Miscellaneous Medication (Phenylephrine Hcl In 0.9% Nacl 1 Mg/10 Ml Syringe) Confirm Administered Dose 1 mg .ROUTE .[employer]-MED ONE Stop: 08/04/21 00:52 Miscellaneous Medication (Phenylephrine Hcl In 0.9% Nacl 1 Mg/10 Ml Syringe) 0.1 mg IVPUSH Q10M PRN PRN Reason: Hypotension Morphine Sulfate (Morphine Pf 10 Mg/10 Ml Sdv) Confirm Administered Dose 10 mg .ROUTE .[employer]-MED ONE Stop: 08/04/21 00:53 Nalbuphine HCl (Nalbuphine 10 Mg/1 Ml Vial) 10 mg IVPUSH Q2H PRN PRN Reason: Pain Ondansetron HCl (Ondansetron 4 Mg/2 Ml Sdv) 4 mg IVPUSH ONETIME PRN PRN Reason: Nausea/Vomiting Last Admin: 08/04/21 00:31 Dose: 4 mg Documented by: Ondansetron HCl (Ondansetron 4 Mg/2 Ml Sdv) Confirm Administered Dose 4 mg .ROUTE .[employer] Stop: 08/04/21 00:52 Ondansetron HCl (Ondansetron 4 Mg/2 Ml Sdv) 4 mg IVPUSH ONETIME PRN PRN Reason: Nausea/Vomiting Oxytocin (Oxytocin 10 Units/1 Ml Sdv) Confirm Administered Dose 20 unit .ROUTE .[employer] ONE Stop: 08/04/21 00:52 Sodium Chloride (Sodium Chloride 0.9% 10 Ml Syringe) 10 ml FLUSH ASDIRECTED PRN PRN Reason: Keep Vein Open - Interaction Infant Disposition, : in Room with Family Interaction: Holding Infant Feeding: Attempted ; Nursed Fair/Poor, Bottle Fed Support Person: Significant Other - Recovery Exam Fundal Tone: Firm Fundal Level: 1 Fingerbreadths Below Umbilicus Fundal Placement: Midline Lochia Amount: Scant, Small Lochia Color: Rubra/Red Perineum Description: Intact, Minimal Bruising/Swelling Episiotomy/Laceration: Approximated Bladder Status: Voiding Urinary Elimination: Voided - Exam General: Alert, Oriented, Cooperative Lungs: Clear to Auscultation, Normal Respiratory Effort Cardiovascular: Regular Rate, Regular Rhythm GI/Abdominal Exam: Soft, Distended (much less than yesterday ), Tender (appropriate post op ) Extremities: Normal Inspection Skin: Warm, Dry, Intact Wound/Incisions: Healing Well, No Drainage - Problem List & Annotations (1) 39 weeks gestation of SNOMED Code(s): 74468220 Code(s): Z3A.39 - 39 WEEKS GESTATION OF Status: Acute (2) SROM (spontaneous rupture of membranes) SNOMED Code(s): 732343930 Code(s): SJN1368 - Status: Acute (3) intolerance to labor, delivered, current hospitalization SNOMED Code(s): 608485237, 468810157 Code(s): O77.9 - LABOR AND DELIVERY COMPLICATED BY STRESS, UNSPECIFIED Status: Acute (4) S/P primary low transverse SNOMED Code(s): 883311964, 95195306, 565937991, 566240213, 541715814 Code(s): Z98.891 - HISTORY OF UTERINE SCAR FROM PREVIOUS SURGERY Status: Acute - Problem List Review Problem List Initiated/Reviewed/Updated: Yes - My Orders Last 24 Hours: My Active Orders 08/05/21 07:54 Simethicone 80 mg PO Q6H PRN 08/05/21 08:00 Docusate Sodium [Colace] 100 mg PO Q12H 08/06/21 06:33 Ready for Discharge [RC] PER UNIT ROUTINE - Assessment Assessment:: POD#2 - Plan Plan:: Routine cares Breast feeding with some formula supplementation Discharge home today
[2021-08-06] MEDS: Docusate Sodium 100 MG Cap PO SCH (08:52)
[2021-08-06] MEDS: Acetaminophen/oxyCODONE 325-5 MG Tab PO PRN (08:55)
[2021-08-06] MEDS: Magnesium Hydroxide 400 MG/5 ML Susp 30 ML Cup PO PRN (10:31)
[2021-08-06] MEDS ORDERED: FLU Vacc QS2021-22 36MOS UP/PF 60 MCG/0.5 ML Syringe IM ONE (11:00)
== END 2021-08-06 11:10 | disposition home or self-care (01) | DRG 540 ==
LOC: JD.OBCHECK 08:04 → JD.OB 08:14 → JD.OBCHECK 13:00 → JD.OB 13:00 → OBSVTOIN 08-04 01:07 → JD.OB 08-04 01:08
PROVIDERS: ADMIT Obstetrics & Gynecology; ATTEND Obstetrics & Gynecology
PROC: 10D00Z1 Extraction of Products of Conception, Low, Open Approach (ICD-10-PCS; principal; 2021-08-04)
DX: O76 Abnormality in fetal heart rate and rhythm complicating labor and delivery (principal); Z3A.39 39 weeks gestation of pregnancy; Z37.0 Single live birth; Z20.822 Contact with and (suspected) exposure to COVID-19
CPT/HCPCS: 36415; 51702; 59025; 76856; 76856-26; 85025; 85027; 86592; 86850; 86900; 86901; 90686; A9270-GY; G0008; J0456; J0690; J1200; J1885; J2270; J2370; J2405; J2590; J3010; J3490; J7030; J7050; J7120; J7121; U0002

== ENCOUNTER 2023-04-22 05:30 | Inpatient (IN) | payer BC, MEDICAID, OTHER ==
[~2023-04-22 05:30] MED LIST: Oxytocin/Lactated Ringers 10 UNIT/1,000 ML BAG IV SCH; Sodium Chloride 0.9% 10 ML Syringe FLUSH PRN
[2023-04-22] MEDS: Lactated Ringers 1,000 ML IV SCH ×2 (06:10→06:50)
[2023-04-22 06:27] LABS: BASOPHILS ABSOLUTE AUTO 0.01 K/mm3 (0.01-0.08); BASOPHILS PERCENT AUTO 0.1 % (0.1-1.2); EOSINOPHILS ABSOLUTE AUTO 0.04 K/mm3 (0.04-0.36); EOSINOPHILS PERCENT AUTO 0.4 (0.7-5.8); HEMATOCRIT 35.4 % (34.1-44.9); HEMOGLOBIN 11.5 gm/dl (11.2-15.7); LYMPHOCYTES ABSOLUTE AUTO 2.78 K/mm3 (1.18-3.74); LYMPHOCYTES PERCENT AUTO 27.2 % (19.3-51.7); MEAN CORPUSCULAR HEMOGLOBIN 28.3 pg (25.6-32.2); MEAN CORPUSCULAR HGB CONC 32.5 g/dl (32.2-35.5); MEAN CORPUSCULAR VOLUME 87.2 fl (79.4-94.8); MEAN PLATELET VOLUME 11.8 fl (9.4-12.3); MONOCYTES ABSOLUTE AUTO 1.16 K/mm3 (0.24-0.36); MONOCYTES PERCENT AUTO 11.3 % (4.7-12.5); NEUTROPHILS ABSOLUTE AUTO 6.14 K/mm3 (1.56-6.13); PLATELET COUNT,PLT 162 K/mm3 (182-369); RED BLOOD CELL COUNT 4.06 M/mm3 (3.98-5.22); WHITE BLOOD CELL COUNT,WBC 10.23 K/mm3 (3.98-10.04)
[2023-04-22] MEDS ORDERED: Citric Acid/Sodium Citrate Solution 30 ML Cup PO ONE (06:30)
[2023-04-22] MEDS ORDERED: Metoclopramide 10 MG/2 ML SDV IVPUSH ONE (06:30)
[2023-04-22] MEDS ORDERED: ceFAZolin 2 GM in Sodium Chloride 0.9% 50 ML IV ONE (07:00)
[2023-04-22] MEDS ORDERED: Lactated Ringers 2,000 ML ONE (07:36)
[2023-04-22] MEDS ORDERED: Ketorolac 30 MG/ML SDV ONE (07:36)
[2023-04-22] MEDS ORDERED: Oxytocin 10 Units/1 ML SDV ONE (07:36)
[2023-04-22] MEDS ORDERED: Ondansetron 4 MG/2 ML SDV ONE (07:36)
[2023-04-22] MEDS ORDERED: Morphine PF 1 MG/ML Amp ONE (07:37)
[2023-04-22] MEDS ORDERED: ceFAZolin 2 GM Vial ONE (07:41)
[2023-04-22] MEDS ORDERED: Meperidine 50 MG/ML Vial IVPUSH PRN (07:55)
[2023-04-22] MEDS ORDERED: Ondansetron 4 MG/2 ML SDV IVPUSH PRN (07:55)
[2023-04-22] MEDS ORDERED: diphenhydrAMINE 50 MG/ML SDV IVPUSH PRN ×2 (07:55→11:14)
[2023-04-22] MEDS ORDERED: fentaNYL 100 MCG/2 ML SDV IVPUSH PRN (07:55)
[2023-04-22] MEDS ORDERED: Sodium Chloride 0.9% 10 ML Syringe FLUSH SCH (09:00)
[2023-04-22] MEDS ORDERED: Dextrose 5%-Lactated Ringers 1,000 ML IV SCH (11:14)
[2023-04-22] MEDS ORDERED: Naloxone 0.4 MG/ML SDV IVPUSH PRN (11:14)
[2023-04-22] MEDS ORDERED: Acetaminophen/oxyCODONE 325-5 MG Tab PO PRN (11:14)
[2023-04-22] MEDS ORDERED: Ondansetron 4 MG/2 ML SDV IV PRN (11:14)
[2023-04-22] MEDS ORDERED: Docusate Sodium 100 MG Cap PO PRN (11:14)
[2023-04-22] MEDS: Ketorolac 30 MG/ML SDV IVPUSH SCH ×2 (15:45→22:25)
[2023-04-22] MEDS ORDERED: Acetaminophen 325 MG Tab PO PRN (19:19)
[2023-04-23] MEDS: Ketorolac 30 MG/ML SDV IVPUSH SCH (04:03)
[2023-04-23 06:22] LABS: HEMOGLOBIN 10.5 gm/dl (11.2-15.7); MEAN CORPUSCULAR HEMOGLOBIN 28.1 pg (25.6-32.2); MEAN CORPUSCULAR HGB CONC 31.8 g/dl (32.2-35.5); MEAN CORPUSCULAR VOLUME 88.2 fl (79.4-94.8); MEAN PLATELET VOLUME 12.7 fl (9.4-12.3); PLATELET COUNT,PLT 131 K/mm3 (182-369); RED BLOOD CELL COUNT 3.74 M/mm3 (3.98-5.22); WHITE BLOOD CELL COUNT,WBC 12.98 K/mm3 (3.98-10.04)
[2023-04-23] MEDS ORDERED: Ibuprofen 600 MG Tab PO PRN (09:00)
[2023-04-23] MEDS: Acetaminophen/oxyCODONE 325-5 MG Tab PO PRN ×3 (11:36→22:31)
[2023-04-24] MEDS: Acetaminophen/oxyCODONE 325-5 MG Tab PO PRN ×2 (02:26→06:53)
== END 2023-04-24 11:52 | disposition home or self-care (01) | DRG 540 ==
LOC: JD.OB 05:30 → OBSVTOIN 08:25 → JD.OB 08:25
PROVIDERS: ADMIT Obstetrics & Gynecology; ATTEND Obstetrics & Gynecology
PROC: 10D00Z1 Extraction of Products of Conception, Low, Open Approach (ICD-10-PCS; principal; 2023-04-22)
DX: O34.211 Maternal care for low transverse scar from previous cesarean delivery (principal); Z37.0 Single live birth; Z3A.39 39 weeks gestation of pregnancy
CPT/HCPCS: 36415; 59025; 85025; 85027; 86592; 86850; 86900; 86901; A9270-GY; J0690; J1200; J1885; J2274; J2405; J2590; J7120

== ENCOUNTER 2024-08-02 23:38 | Emergency (ER) | payer BC, MEDICAID ==
[2024-08-03] MEDS: Sodium Chloride 0.9% 1,000 ML IV SCH (00:23)
[2024-08-03] MEDS: cefTRIAXone 2 GM in Sodium Chloride 0.9% 100 ML IV ONE (00:23)
[2024-08-03 00:29] LABS: BASOPHILS PERCENT AUTO 0.2 % (0.0-1.0); EOSINOPHILS PERCENT AUTO 0.2 % (0.0-6.0); HEMATOCRIT 35.6 % (37.0-47.0); HEMOGLOBIN 11.6 gm/dl (12.0-16.0); IMMATURE GRAN ABSOLUTE AUTO 0.06 K/mm3 (0.00-0.05); IMMATURE GRAN PERCENT AUTO 0.5 % (0.0-0.4); LYMPHOCYTES ABSOLUTE AUTO 3.5 K/mm3 (1.0-4.8); LYMPHOCYTES PERCENT AUTO 26.9 % (24.0-44.0); MEAN CORPUSCULAR HEMOGLOBIN 27.1 pg (28.0-32.0); MEAN CORPUSCULAR HGB CONC 32.6 g/dl (32.0-36.0); MEAN CORPUSCULAR VOLUME 83.2 fl (83.0-99.0); MEAN PLATELET VOLUME 10.9 fl (9.4-12.3); MONOCYTES ABSOLUTE AUTO 2.2 K/mm3 (0.0-0.8); MONOCYTES PERCENT AUTO 16.7 % (0.0-8.0); NEUTROPHILS ABSOLUTE AUTO 7.2 K/mm3 (1.8-7.7); NEUTROPHILS PERCENT AUTO 55.5 % (41.0-71.0); PLATELET COUNT,PLT 302 K/mm3 (150-400); RED BLOOD CELL COUNT 4.28 M/mm3 (4.10-5.30); WHITE BLOOD CELL COUNT,WBC 12.99 K/mm3 (3.9-11.3)
[2024-08-03 00:34] LABS: APPEARANCE,URINE CLEAR (Clear); BILIRUBIN,URINE NEGATIVE (Negative); COLOR,URINE YELLOW (Yellow); GLUCOSE,URINE NEGATIVE (Negative); KETONES,URINE NEGATIVE (Negative); LEUKOCYTE ESTERASE,URINE TRACE (Negative); NITRITE,URINE NEGATIVE (Negative); OCCULT BLOOD,URINE 1+ (Negative); PH,URINE 6.5 (5.0-8.0); PROTEIN,URINE NEGATIVE (Negative)
[2024-08-03 00:40] LABS: A/G RATIO 0.7 (1-2); ALBUMIN 3.3 g/dl (3.4-5.0); BILIRUBIN TOTAL 0.2 mg/dL (0.2-1.0); BUN/CREATININE RATIO 5.6 (14-18); C-REACTIVE PROTEIN 16.72 mg/dL (<0.30); CALCIUM 9.2 mg/dL (8.5-10.1); CREATININE 0.9 mg/dL (0.55-1.02); EST CRCL DRUG DOSING (CG) 76.77 mL/min; MAGNESIUM 1.9 mg/dL (1.8-2.4); PROTEIN TOTAL,TP 8.2 g/dl (6.4-8.2)
[2024-08-03 00:42] LABS: LACTIC ACID 0.9 mmol/L (0.4-2.0)
[2024-08-03 00:44] LABS: BACTERIA,URINE FEW /hpf (FEW); MUCUS,URINE NOT SEEN /hpf (FEW); RBC,URINE 0-5 /hpf (0-5)
[2024-08-03 01:10] LABS: SLIDE REVIEW ABNORMAL SMEAR
[2024-08-03] MEDS: Ibuprofen 800 MG Tab PO ONE (01:38)
== END 2024-08-03 01:49 | disposition home or self-care (01) ==
LOC: JD.ED 23:38
DX: N12 Tubulo-interstitial nephritis, not specified as acute or chronic (principal); N39.0 Urinary tract infection, site not specified; E66.9 Obesity, unspecified; Z88.8 Allergy status to other drugs, medicaments and biological substances
CPT/HCPCS: 36415; 80053; 81001; 83605; 83690; 83735; 84703; 85025; 86140; 87040; 87086; 96361; 96365; 99284; A9270; J0696; J3490; J7030

== ENCOUNTER 2025-01-04 16:51 | Emergency (ER) | payer BC ==
[2025-01-04] MEDS: Ondansetron 4 MG/2 ML SDV IVPUSH ONE (17:55)
[2025-01-04] MEDS: Sodium Chloride 0.9% 1,000 ML IV ONE (17:55)
[2025-01-04 18:01] LABS: BASOPHILS PERCENT AUTO 0.1 % (0.0-1.0); EOSINOPHILS PERCENT AUTO 0.1 % (0.0-6.0); HEMATOCRIT 36.1 % (37.0-47.0); HEMOGLOBIN 11.9 gm/dl (12.0-16.0); IMMATURE GRAN ABSOLUTE AUTO 0.04 K/mm3 (0.00-0.05); IMMATURE GRAN PERCENT AUTO 0.4 % (0.0-0.4); LYMPHOCYTES ABSOLUTE AUTO 2.4 K/mm3 (1.0-4.8); LYMPHOCYTES PERCENT AUTO 21.9 % (24.0-44.0); MEAN CORPUSCULAR HEMOGLOBIN 27.8 pg (28.0-32.0); MEAN CORPUSCULAR VOLUME 84.3 fl (83.0-99.0); MEAN PLATELET VOLUME 11.1 fl (9.4-12.3); MONOCYTES ABSOLUTE AUTO 0.9 K/mm3 (0.0-0.8); MONOCYTES PERCENT AUTO 8.5 % (0.0-8.0); NEUTROPHILS ABSOLUTE AUTO 7.4 K/mm3 (1.8-7.7); PLATELET COUNT,PLT 220 K/mm3 (150-400); RED BLOOD CELL COUNT 4.28 M/mm3 (4.10-5.30); WHITE BLOOD CELL COUNT,WBC 10.72 K/mm3 (3.9-11.3)
[2025-01-04 18:21] LABS: ALBUMIN 3.7 g/dl (3.4-5.0); ANION GAP 10.5 (5-15); BILIRUBIN TOTAL 0.4 mg/dL (0.2-1.0); BUN/CREATININE RATIO 8.9 (14-18); C-REACTIVE PROTEIN 1.71 mg/dL (<0.30); CALCIUM 8.5 mg/dL (8.5-10.1); CREATININE 0.9 mg/dL (0.55-1.02); POTASSIUM,K 3.5 mEq/L (3.5-5.1); PROTEIN TOTAL,TP 7.4 g/dl (6.4-8.2)
[2025-01-04 18:42] LABS: APPEARANCE,URINE SLT CLOUDY (Clear); BILIRUBIN,URINE NEGATIVE (Negative); COLOR,URINE YELLOW (Yellow); GLUCOSE,URINE NEGATIVE (Negative); KETONES,URINE NEGATIVE (Negative); LEUKOCYTE ESTERASE,URINE 1+ (Negative); NITRITE,URINE POSITIVE (Negative); OCCULT BLOOD,URINE TRACE-INTACT (Negative); PROTEIN,URINE 2+ (Negative); UROBILINOGEN,URINE 0.2 (0.2-1.0)
[2025-01-04 18:48] LABS: BACTERIA,URINE MANY /hpf (FEW); MUCUS,URINE MODERATE /hpf (FEW); RBC,URINE 0-5 /hpf (0-5); SQUAMOUS EPITHELIAL CELLS,UR 0-5 /hpf (0-5); WBC,URINE 30-40 /hpf (0-5)
[2025-01-04] MEDS ORDERED: cefTRIAXone 1 GM Vial IVPUSH ONE (19:00)
[2025-01-04] MEDS: Sodium Chloride 0.9% 10 ML Syringe FLUSH ONE (19:27)
[2025-01-04] MEDS: Iopamidol 755 Mg/ML 100 ML Bottle IVPUSH ONE (19:27)
[2025-01-04] MEDS: cefTRIAXone 1 GM Vial IVPUSH ONE (20:31)
== END 2025-01-04 20:45 | disposition home or self-care (01) ==
LOC: JD.ED 16:51
DX: N30.00 Acute cystitis without hematuria (principal); E66.9 Obesity, unspecified; Z79.899 Other long term (current) drug therapy; Z88.8 Allergy status to other drugs, medicaments and biological substances; Z68.27 Body mass index [BMI] 27.0-27.9, adult
CPT/HCPCS: 36415; 74177; 80053; 81001; 81025; 85025; 86140; 96361; 96374; 96375; 99284; J0696; J2405; J7030; Q9967